=== PATIENT | male | born 1965 | race African-American/Black ===

== ENCOUNTER 2016-09-14 15:43 | Emergency (ER) | payer BC ==
[~2016-09-14 15:43] MED LIST: AMLO10TA4 PO; ATOR20TA PO; Aspirin PO; LOSA100T2 PO; OLME1TAB35 PO
[2016-09-14] MEDS ORDERED: MORPHINE SULFATE 10 MG/ML VIAL. IM ONE (16:45)
--- NOTE | 2016-09-14 17:37 | PHYS DOC ---
Past Medical History Past Medical History: Hypertension Additional Past Medical Histor: OBESTITY Past Surgical History: Tonsillectomy, Other Additional Past Surgical Histo: hernia Alcohol Use: None Drug Use: None Adult General Chief Complaint Chief Complaint: LOWER BACK PAIN OR INJURY HPI HPI Patient is a 51 year old male who presents with left buttock pain. Patient reports sharp aching pain to left buttock causing sharp shooting pain to radiate down his left lower extremity. Reports onset of pain about 3 weeks ago. Denies fevers/chills, abdominal pain, dysuria/hematuria, lower extremity numbness/weakness, bowel/bladder incontinence/retention, saddle anesthesia. No recent history of trauma but is physically active at his job, involves climbing in & out of a vehicle. Saw his PCP yesterday & was to have outpatient imaging, given prescriptions for norco & flexeril. He has hypertension but states he has not taken meds for 3 days. Meds include clonidine, norvasc, & a third medication he can't remember. He has the pills at home. He denies headache, chest pain, shortness of breath, extremity numbness/weakness. PCP is Dr. Eid. Review of Systems Review of Systems Constitutional: Denies fever or chills Eyes: Denies change in visual acuity HENT: Denies nasal congestion or sore throat Respiratory: Denies cough or shortness of breath Cardiovascular: Denies chest pain or edema GI: Denies abdominal pain, nausea, vomiting : Denies dysuria or hematuria Musculoskeletal: Denies back pain, reports left buttock pain Integument: Denies rash or skin lesions Neurologic: Denies headache, focal weakness or sensory changes Current Medications Current Medications Current Medications Medications (Trade) Dose Ordered Sig/Benoit Start Time Stop Time Status Last Admin Dose Admin Morphine Sulfate 5 mg 1X ONCE 09/14/16 16:45 09/14/16 16:46 DC 09/14/16 16:45 5 MG Allergies Allergies Allergies Coded Allergies Type Severity Reaction Last Updated Verified No Known Drug Allergies 02/20/14 No Physical Exam Physical Exam Constitutional: morbidly obese, no acute distress, non-toxic appearance. HENT: Normocephalic, atraumatic, bilateral external ears normal, oropharynx moist, nose normal. Eyes: conjunctiva normal, no discharge. Neck: supple, no stridor. Cardiovascular: RRR, no murmurs, no edema. Lungs & Thorax: LCTAB, no wheezing, no respiratory distress. Abdomen: soft, nontender, nondistended. no masses or pulsatile masses appreciated. Skin: Warm, dry, no erythema, no rash. Back: no focal spinal tenderness, no CVA tenderness. Extremities: tenderness to palpation over left buttock & laterally over the left hip, able to demonstrate hip flexion/extension though limited by body habitus, pain not increased by straight leg raise, dp/pt 2+ bilaterally, sensation intact to foot. Neurologic: Alert and oriented X 3, no focal deficits noted. Psychologic: Affect normal, judgement normal, mood normal. Current Patient Data Vital Signs Vital Signs Date Time Temp Pulse Resp B/P Pulse Ox O2 Delivery O2 Flow Rate FiO2 09/14/16 17:48 83 16 188/97 99 09/14/16 15:50 98.9 Room Air 98.9 EKG EKG [] Radiology/Procedures Radiology/Procedures X-ray of the lumbar spine: Interpreted by me: L4-L5 spondylolisthesis, no fracture XR L hip & pelvis: interpreted by me: no fracture or dislocation. Course & Med Decision Making Course & Med Decision Making Pertinent Labs and Imaging studies reviewed. (See chart for details) Patient presents with hip pain. I gave IM morphine injection & his pain improved. Imaging was obtained, no evidence of acute bony pathology though spondylolisthesis could certainly contribute to sciatica symptoms. Recommend rest, heat, stretch, continue meds as prescribed by PCP, keep follow up appointment with Dr. Eid within 1 week, may benefit from PT or neurosurgery referral if symptoms poorly controlled. Encouraged to take blood pressure medication exactly as prescribed, follow up with PCP for blood pressure recheck. Come back for high fever, severe pain, focal neuro deficit, symptoms of cauda equina syndrome, severe headache, severe chest pain or shortness of breath, any otherwise worsening condition. Discharged home in stable condition. [] Dragon Disclaimer Dragon Disclaimer This electronic medical record was generated, in whole or in part, using a voice recognition dictation system. Departure Departure Impression: Primary Impression: Sciatica Additional Impression: Spondylolisthesis Disposition: HOME, SELF-CARE Condition: STABLE Referrals: DEN EID MD Patient Instructions: Hypertension, [id number], Sciatica, [id number] Additional Instructions: You were seen in the emergency department today for back and buttock pain. X- ray showed some slipping of the bones of your spine but no broken bones. Your symptoms are partially due to irritation of the sciatic nerve. Please rest, try to stretch gently, use heating pad, take medications as prescribed by Dr. Eid. Please keep scheduled follow-up appointment in his clinic within the next week. He may refer you for physical therapy or to see a specialist. Return to the emergency department for high fever, numbness or weakness in arms or legs , loss of control of bowels or bladder, any otherwise worsening condition. Your blood pressure was very high today. Please make sure to take medication exactly as prescribed without missing any doses. Be sure to have blood pressure rechecked when following up with primary care doctor. Return to the emergency department for worst headache of your life, severe chest pain, severe shortness of breath, difficulty moving arms or legs, any otherwise worsening condition. Problem Qualifiers SOFIA VILLALOBOS MD Sep 14, 2016 17:37
[2016-09-14 17:48] VITALS: BP 188/97
--- NOTE | 2016-09-15 09:22 | RAD ---
Three-view lumbar spine series History: Lower back pain and hip pain for one week. No known injury. Findings: No compression fracture or discitis or osteolytic process is seen. Grade 1 anterolisthesis of L4-5 is seen. Mild degenerative disc space narrowing is seen at L4-5. The transverse processes are intact. Mild degenerative endplate spurring is seen at T12-L1. IMPRESSION: Grade 1 anterolisthesis of L4-5.
--- NOTE | 2016-09-15 09:24 | RAD ---
AP view of the pelvis and two-view study of the left hip Clinical indications: Left hip pain for week. No known injury. Left hip: No acute fracture or dislocation or osteolytic process is seen. No significant arthritic change is evident. Pelvis: No acute fracture or diastases or osteolytic process is seen. IMPRESSION: No acute fracture.
== END 2016-09-14 17:49 | disposition home or self-care (01) ==
LOC: ER 15:43
DX: M54.30 Sciatica, unspecified side (principal); M43.10 Spondylolisthesis, site unspecified; I10 Essential (primary) hypertension; E66.9 Obesity, unspecified
CPT/HCPCS: 72100; 73502; 96372; 99284; J2270

== ENCOUNTER 2018-08-25 02:11 | Emergency (ER) | payer OTHER ==
[~2018-08-25] VITALS: Ht 182.9 cm; Wt 173.7 kg
[~2018-08-25 02:11] MED LIST changes: +DOXY100T PO
[2018-08-25] MEDS ORDERED: ACETAMINOPHEN 500 MG TABLET PO ONE (03:30)
[2018-08-25] MEDS ORDERED: IPRATRPIUM/ALBUTEROL 0.5/2.5MG 3 ML NEBU. NEB ONE (03:30)
[2018-08-25 03:46] LABS: BASO % 1 % (0-3); EOS % 1 % (0-3); HEMATOCRIT 41.6 % (39.0-53.0); HEMOGLOBIN 13.3 g/dL (13.0-17.5); LYMPH # 0.9 x10^3/uL (1.0-4.8); LYMPH % 12 % (24-48); MEAN CORPUSCULAR HEMOGLOBIN 24 pg (25-35); MEAN CORPUSCULAR HGB CONC 32 g/dL (31-37); MEAN CORPUSCULAR VOLUME 76 fL (79-100); MONO # 0.9 x10^3/uL (0.0-1.1); MONO % 12 % (0-9); NEUT # 5.7 x10^3uL (1.8-7.7); NEUT % 75 % (31-73); PLATELET COUNT 177 x10^3/uL (140-400); RED BLOOD COUNT 5.49 x10^6/uL (4.30-5.70); RED CELL DISTRIBUTION WIDTH 16.4 % (11.5-14.5); WHITE BLOOD COUNT 7.7 x10^3/uL (4.0-11.0)
[2018-08-25] MEDS ORDERED: ASPIRIN CHEWABLE 81 MG TABLET. PO ONE (04:00)
[2018-08-25] MEDS ORDERED: LABETALOL 20 MG/4 ML DISP.SYRIN. IVP ONE (04:00)
[2018-08-25 04:06] LABS: CALCIUM 8.9 mg/dL (8.5-10.1); CREATININE 1.3 mg/dL (0.7-1.3); GFR 70.4; POTASSIUM 3.9 mmol/L (3.5-5.1)
[2018-08-25 04:10] LABS: INFLUENZA A PATIENT NEGATIVE (NEGATIVE); INFLUENZA B PATIENT NEGATIVE (NEGATIVE)
[2018-08-25 04:12] LABS: ALBUMIN 3.4 g/dL (3.4-5.0); ALBUMIN/GLOBULIN RATIO 0.7 (1.0-1.7); TOTAL BILIRUBIN 0.5 mg/dL (0.2-1.0); TOTAL PROTEIN 8.1 g/dL (6.4-8.2)
--- NOTE | 2018-08-25 04:14 | PHYS DOC ---
Past Medical History Past Medical History: Hypertension, Other Additional Past Medical Histor: OBESTITY (CHOLO GONZALEZ MD) Past Surgical History: Tonsillectomy, Other Additional Past Surgical Histo: hernia (CHOLO GONZALEZ MD) Alcohol Use: Sober Drug Use: Other Social History Narrative: NO CURRENT DRUG USE- IN THE PAST (CHOLO GONZALEZ MD) Adult General Chief Complaint Chief Complaint: Congestion HPI HPI Patient is a 52 yo male who presents with complaint of nonproductive cough and chest congestion that began Friday and has worsened. Patient reports his cough is dry but he feels like he "can't cough hard enough to bring anything up". He also reports he has had intermittent episodes of wheezing but denies shortness of breath. He also denies fevers, chills, chest pain, abdominal pain, or urinary symptoms. He denies recent travel or sick contacts. He reports he did not get the flu shot this season. (CHOLO GONZALEZ MD) Review of Systems Review of Systems Constitutional: Denies fever or chills [] Eyes: Denies change in visual acuity, redness, or eye pain [] HENT: Denies nasal congestion or sore throat [] Respiratory: Admits cough. Admits wheezing. Denies shortness of breath. Cardiovascular: Denies chest pain. Denies palpitations. GI: Denies abdominal pain, nausea, vomiting, bloody stools or diarrhea [] : Denies dysuria or hematuria [] Musculoskeletal: Denies back pain or joint pain [] Integument: Denies rash or skin lesions [] Neurologic: Denies headache, focal weakness or sensory changes [] All other systems were reviewed and found to be within normal limits, except as documented in this note. (CHOLO GONZALEZ MD) Current Medications Current Medications Current Medications Medications (Trade) Dose Ordered Sig/Benoit Start Time Stop Time Status Last Admin Dose Admin Acetaminophen (Tylenol) 1,000 mg 1X ONCE 08/25/18 03:30 08/25/18 03:31 DC 08/25/18 03:12 1,000 MG Albuterol/ Ipratropium (Duoneb) 3 ml 1X ONCE 08/25/18 03:30 08/25/18 03:31 DC 08/25/18 04:02 3 ML Aspirin (Ghazal Aspirin) 325 mg 1X ONCE 08/25/18 08:00 3/19/19 08:00 DC Aspirin (Children'S Aspirin) 324 mg 1X ONCE 08/25/18 04:00 08/25/18 04:01 DC 08/25/18 03:51 324 MG Labetalol HCl (Normodyne Iv Push) 20 mg 1X ONCE 08/25/18 04:00 08/25/18 04:01 DC 08/25/18 03:53 20 MG (TYRONE TOUSSAINT DO) Allergies Allergies Allergies Coded Allergies Type Severity Reaction Last Updated Verified I S O L A T I O N *CONTACT* Allergy Unknown 10/22/17 Yes No Known Medication Allergies Allergy Unknown 10/22/17 Yes (TYRNOE TOUSSAINT DO) Physical Exam Physical Exam Constitutional: Well developed, obese, no acute distress, non-toxic appearance. [] HENT: Normocephalic, atraumatic, oropharynx dry, no oral exudates, nose normal. [] Eyes: PERRLA, EOMI, conjunctiva normal, no discharge. [] Neck: Normal range of motion, no tenderness, supple Cardiovascular:Heart rate regular rhythm, no murmur [] Lungs & Thorax: Bilateral breath sounds clear to auscultation [] Abdomen: Soft, no tenderness, no masses, [] Skin: Warm, dry, no erythema, no rash. [] Back: No tenderness, no CVA tenderness. [] Extremities: No tenderness, no cyanosis, no clubbing, ROM intact, no edema. [] Neurologic: Alert and oriented X 3, normal motor function, normal sensory function, no focal deficits noted. [] Psychologic: Affect normal, judgement normal, mood normal. [] (CHOLO GONZALEZ MD) Current Patient Data Vital Signs Vital Signs Date Time Temp Pulse Resp B/P (MAP) Pulse Ox O2 Delivery O2 Flow Rate FiO2 08/25/18 08:17 79 20 196/74 (114) 100 Room Air 08/25/18 02:22 99.7 99.7 (TYRONE TOUSSAINT DO) Lab Values Laboratory Tests Test 08/25/18 03:25 08/25/18 03:35 08/25/18 04:35 Influenza Type A Antigen Negative (NEGATIVE) Influenza Type B Antigen Negative (NEGATIVE) White Blood Count 7.7 x10^3/uL (4.0-11.0) Red Blood Count 5.49 x10^6/uL (4.30-5.70) Hemoglobin 13.3 g/dL (13.0-17.5) Hematocrit 41.6 % (39.0-53.0) Mean Corpuscular Volume 76 fL (79-100) L Mean Corpuscular Hemoglobin 24 pg (25-35) L Mean Corpuscular Hemoglobin Concent 32 g/dL (31-37) Red Cell Distribution Width 16.4 % (11.5-14.5) H Platelet Count 177 x10^3/uL (140-400) Neutrophils (%) (Auto) 75 % (31-73) H Lymphocytes (%) (Auto) 12 % (24-48) L Monocytes (%) (Auto) 12 % (0-9) H Eosinophils (%) (Auto) 1 % (0-3) Basophils (%) (Auto) 1 % (0-3) Neutrophils # (Auto) 5.7 x10^3uL (1.8-7.7) Lymphocytes # (Auto) 0.9 x10^3/uL (1.0-4.8) L Monocytes # (Auto) 0.9 x10^3/uL (0.0-1.1) Eosinophils # (Auto) 0.0 x10^3/uL (0.0-0.7) Basophils # (Auto) 0.0 x10^3/uL (0.0-0.2) Sodium Level 141 mmol/L (136-145) Potassium Level 3.9 mmol/L (3.5-5.1) Chloride Level 102 mmol/L (98-107) Carbon Dioxide Level 31 mmol/L (21-32) Anion Gap 8 (6-14) Blood Urea Nitrogen 13 mg/dL (8-26) Creatinine 1.3 mg/dL (0.7-1.3) Estimated GFR (Cockcroft-Gault) 70.4 BUN/Creatinine Ratio 10 (6-20) Glucose Level 118 mg/dL (70-99) H Calcium Level 8.9 mg/dL (8.5-10.1) Total Bilirubin 0.5 mg/dL (0.2-1.0) Aspartate Amino Transferase (AST) 24 U/L (15-37) Alanine Aminotransferase (ALT) 24 U/L (16-63) Alkaline Phosphatase 47 U/L (46-116) Troponin I Quantitative 0.293 ng/mL (0.000-0.055) Total Protein 8.1 g/dL (6.4-8.2) Albumin 3.4 g/dL (3.4-5.0) Albumin/Globulin Ratio 0.7 (1.0-1.7) L POC Troponin I 0.05 ng/ml (<0.08) Laboratory Tests 08/25/18 03:35 Laboratory Tests 08/25/18 03:35 (TYRONE TOUSSAINT DO) EKG EKG @0319; HR 92 BPM; sinus rhythm. no ST elevation. (CHOLO GONZALEZ MD) Radiology/Procedures Radiology/Procedures [ED Prelim Read CXR: No acute cardiopulmonary abnormality. Compared to previous EKG from 10/17/17 without significant change. ] (CHOLO GONZALEZ MD) Course & Med Decision Making Course & Med Decision Making Patient is a 52 yo male who presents with complaint of cough and congestion. Patient reports he has had symptoms for one day and decided to come to ED. On physical exam patient is hypertensive (243/91), afebrile, 97% RA, HR 88 BPM. Lungs are CTAB. CXR unremarkable. EKG shows normal sinus rhythm. Flu swab negative. Patient reports he has PMH of HTN but has been out of his medication for a while. Patient's pressure treated with labetalol and decreased to SBP 197. Patient also given duoneb treatment for cough with some symptomatic resolution. When processing patient's blood work lab reported machine error with running troponin. waiting on confirmation at this tiem. re-eval 550 am bp 189 systolic. s/o toussaint pending trop in the lab. may be able to go home (CHOLO GONZALEZ MD) Course & Med Decision Making This physician took over care of this patient at 6 am, shift change. Patient denied any chest pain or shortness of air. He denied any headache, no blurry vision, no speech problem. He said he came here today for the cough. He has history of HTN. His blood pressure was elevated in the ER. His troponin was elevated. This physician discussed lab result with patient and recommended that he will need to be admitted to the hospital for further evaluation by the product design manager because he may have acute coronary syndrome due to uncontrolled hypertension. However, patient adamently declined hospital admission. 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 This physician and his nurse explained that he may from a heart attack, stroke or other organ failure such as his eyes, lung, and kidney problem. Patient still will not agree to be admitted. He was awake, alert, oriented. He was of sound mind, no mental handicap. He was competent to make medical decision. He was fully aware of the risk of going home, that he may from heart attack or stroke. He had met no criteria to be involuntary held against his will. He denied suicidal ideation or being depressed. Patient signed out against medical advise. (TYRONE TOUSSAINT DO) Dragon Disclaimer Dragon Disclaimer This electronic medical record was generated, in whole or in part, using a voice recognition dictation system. (CHOLO GONZALEZ MD) Departure Departure Impression: Primary Impression: Cough Additional Impression: Hypertensive urgency, malignant Disposition: 07 AGAINST MEDICAL ADVICE Condition: STABLE Referrals: DEN EID MD (PCP) follow up with your doctor today or return to the hospital [facility] if you have any chest pain, headache, numbness, slurred speech or any concern. Patient Instructions: Discharge Against Medical Advice Problem Qualifiers CHOLO GONZALEZ MD Aug 25, 2018 04:14 TYRONE TOUSSAINT DO Aug 25, 2018 08:41
--- NOTE | 2018-08-25 07:34 | EKG ---
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
[2018-08-25] MEDS ORDERED: ASPIRIN 325 MG TABLET PO ONE (08:00)
--- NOTE | 2018-08-25 08:03 | RAD ---
PROCEDURE: PORTABLE CHEST 1V CLINICAL INDICATION: cough COMPARISON: None FINDINGS: No pneumothorax identified. Cardiac and mediastinal contours unremarkable. No pulmonary consolidation or acute airspace disease. No acute osseous abnormalities identified. IMPRESSION: No pulmonary consolidation or acute airspace disease. Electronically signed by: Art Nelson DO (08/25/2018 8:00 AM) [facility]
[2018-08-25 08:47] VITALS: BP 215/95
== END 2018-08-25 08:49 | disposition left against medical advice (07) ==
LOC: ER 02:11
DX: I16.0 Hypertensive urgency (principal); R05 Cough; R09.81 Nasal congestion; Z90.89 Acquired absence of other organs; Z79.82 Long term (current) use of aspirin; Z91.041 Radiographic dye allergy status
CPT/HCPCS: 36415; 71045; 80053; 84484; 85025; 87804; 93005; 94640; 96374; 99284; J3490; J7620